=== PATIENT | male | born 1935 | race Native Hawaiian/Other Pacific Islander ===

== ENCOUNTER 2016-09-23 12:00 | Outpatient (CLI) | payer OTHER, MEDICARE | END 2016-09-23 19:25 | disposition home or self-care (01) | LOC: LAB 12:00 | DX: I25.110 Atherosclerotic heart disease of native coronary artery with unstable angina pectoris (principal); J44.9 Chronic obstructive pulmonary disease, unspecified; R26.81 Unsteadiness on feet; Z79.01 Long term (current) use of anticoagulants; Z51.81 Encounter for therapeutic drug level monitoring | CPT/HCPCS: 85610 ==

== ENCOUNTER 2017-01-10 11:41 | Outpatient (CLI) | payer OTHER, MEDICARE | END 2017-01-10 12:45 | disposition home or self-care (01) | LOC: LABW 11:41 | DX: I25.10 Atherosclerotic heart disease of native coronary artery without angina pectoris (principal); Z79.01 Long term (current) use of anticoagulants; Z51.81 Encounter for therapeutic drug level monitoring | CPT/HCPCS: 36415; 85610 ==

== ENCOUNTER 2017-01-23 13:00 | Outpatient (CLI) | payer OTHER, MEDICARE | END 2017-01-23 19:33 | disposition home or self-care (01) | LOC: LABW 13:00 | DX: I25.10 Atherosclerotic heart disease of native coronary artery without angina pectoris (principal); Z79.01 Long term (current) use of anticoagulants; Z51.81 Encounter for therapeutic drug level monitoring | CPT/HCPCS: 36415; 85610 ==

== ENCOUNTER 2017-02-06 09:53 | Outpatient (CLI) | payer OTHER, MEDICARE | END 2017-02-06 19:00 | disposition home or self-care (01) | LOC: LABW 09:53 | DX: I25.10 Atherosclerotic heart disease of native coronary artery without angina pectoris (principal); Z79.01 Long term (current) use of anticoagulants; Z51.81 Encounter for therapeutic drug level monitoring | CPT/HCPCS: 36415; 85610 ==

== ENCOUNTER 2017-02-13 10:31 | Outpatient (CLI) | payer OTHER, MEDICARE | END 2017-02-13 11:35 | disposition home or self-care (01) | LOC: LABW 10:31 | DX: I25.10 Atherosclerotic heart disease of native coronary artery without angina pectoris (principal); Z79.01 Long term (current) use of anticoagulants; Z51.81 Encounter for therapeutic drug level monitoring | CPT/HCPCS: 36415; 85610 ==

== ENCOUNTER 2017-02-28 10:58 | Outpatient (CLI) | payer OTHER, MEDICARE | END 2017-02-28 19:15 | disposition home or self-care (01) | LOC: LABW 10:58 | DX: I25.10 Atherosclerotic heart disease of native coronary artery without angina pectoris (principal); Z79.01 Long term (current) use of anticoagulants; Z51.81 Encounter for therapeutic drug level monitoring | CPT/HCPCS: 36415; 85610 ==

== ENCOUNTER 2017-03-14 10:33 | Outpatient (CLI) | payer OTHER, MEDICARE | END 2017-03-14 19:09 | disposition home or self-care (01) | LOC: LABW 10:33 | DX: I25.10 Atherosclerotic heart disease of native coronary artery without angina pectoris (principal); Z79.01 Long term (current) use of anticoagulants; Z51.81 Encounter for therapeutic drug level monitoring | CPT/HCPCS: 36415; 85610 ==

== ENCOUNTER 2017-04-21 13:18 | Outpatient (CLI) | payer OTHER, MEDICARE | END 2017-04-21 14:20 | disposition home or self-care (01) | LOC: RAD 13:18 | DX: M17.11 Unilateral primary osteoarthritis, right knee (principal) ==

== ENCOUNTER 2017-05-16 09:24 | Outpatient (CLI) | payer OTHER, MEDICARE | END 2017-05-16 19:18 | disposition home or self-care (01) | LOC: LABW 09:24 | DX: I25.10 Atherosclerotic heart disease of native coronary artery without angina pectoris (principal); Z79.01 Long term (current) use of anticoagulants; Z51.81 Encounter for therapeutic drug level monitoring | CPT/HCPCS: 36415; 85610 ==

== ENCOUNTER 2017-05-23 08:49 | Outpatient (CLI) | payer OTHER, MEDICARE | END 2017-05-23 09:50 | disposition home or self-care (01) | LOC: LABW 08:49 | DX: I25.10 Atherosclerotic heart disease of native coronary artery without angina pectoris (principal); Z79.01 Long term (current) use of anticoagulants; Z51.81 Encounter for therapeutic drug level monitoring | CPT/HCPCS: 36415; 85610 ==

== ENCOUNTER 2017-06-16 10:50 | Outpatient (CLI) | payer OTHER, MEDICARE | END 2017-06-16 20:28 | disposition home or self-care (01) | LOC: LABW 10:50 | DX: I25.10 Atherosclerotic heart disease of native coronary artery without angina pectoris (principal); Z79.01 Long term (current) use of anticoagulants; Z51.81 Encounter for therapeutic drug level monitoring | CPT/HCPCS: 36415; 85610 ==

== ENCOUNTER 2017-06-30 10:31 | Outpatient (CLI) | payer OTHER, MEDICARE | END 2017-06-30 19:41 | disposition home or self-care (01) | LOC: LABW 10:31 | DX: I25.10 Atherosclerotic heart disease of native coronary artery without angina pectoris (principal); Z79.01 Long term (current) use of anticoagulants; Z51.81 Encounter for therapeutic drug level monitoring | CPT/HCPCS: 36415; 85610 ==

== ENCOUNTER 2017-07-21 10:07 | Outpatient (CLI) | payer OTHER, MEDICARE | END 2017-07-21 19:19 | disposition home or self-care (01) | LOC: LABW 10:07 | DX: I25.10 Atherosclerotic heart disease of native coronary artery without angina pectoris (principal); Z79.01 Long term (current) use of anticoagulants; Z51.81 Encounter for therapeutic drug level monitoring | CPT/HCPCS: 36415; 85610 ==

== ENCOUNTER 2017-08-05 10:51 | Outpatient (CLI) | payer OTHER, MEDICARE | END 2017-08-05 19:55 | disposition home or self-care (01) | LOC: LABW 10:51 | DX: I25.10 Atherosclerotic heart disease of native coronary artery without angina pectoris (principal); Z79.01 Long term (current) use of anticoagulants; Z51.81 Encounter for therapeutic drug level monitoring | CPT/HCPCS: 36415; 85610 ==

== ENCOUNTER 2017-08-26 10:05 | Outpatient (CLI) | payer OTHER, MEDICARE | END 2017-08-26 18:00 | disposition home or self-care (01) | LOC: LABW 10:05 | DX: I25.10 Atherosclerotic heart disease of native coronary artery without angina pectoris (principal); Z79.01 Long term (current) use of anticoagulants; Z51.81 Encounter for therapeutic drug level monitoring | CPT/HCPCS: 36415; 85610 ==

== ENCOUNTER 2017-09-08 10:42 | Outpatient (CLI) | payer OTHER, MEDICARE | END 2017-09-08 23:35 | disposition home or self-care (01) | LOC: LABW 10:42 | DX: I25.10 Atherosclerotic heart disease of native coronary artery without angina pectoris (principal); Z79.01 Long term (current) use of anticoagulants; Z51.81 Encounter for therapeutic drug level monitoring | CPT/HCPCS: 36415; 85610 ==

== ENCOUNTER 2017-09-24 13:36 | Outpatient (CLI) | payer OTHER, MEDICARE | END 2017-09-24 20:57 | disposition home or self-care (01) | LOC: LABW 13:36 | DX: I25.10 Atherosclerotic heart disease of native coronary artery without angina pectoris (principal); Z79.01 Long term (current) use of anticoagulants; Z51.81 Encounter for therapeutic drug level monitoring | CPT/HCPCS: 36415; 85610 ==

== ENCOUNTER 2017-10-09 09:57 | Outpatient (CLI) | payer OTHER, MEDICARE | END 2017-10-09 22:28 | disposition home or self-care (01) | LOC: LABW 09:57 | DX: I25.10 Atherosclerotic heart disease of native coronary artery without angina pectoris (principal); Z79.01 Long term (current) use of anticoagulants; Z51.81 Encounter for therapeutic drug level monitoring | CPT/HCPCS: 36415; 85610 ==

== ENCOUNTER 2017-10-10 09:51 | Outpatient (CLI) | payer OTHER, MEDICARE | END 2017-10-10 22:14 | disposition home or self-care (01) | LOC: LABW 09:51 | DX: I25.10 Atherosclerotic heart disease of native coronary artery without angina pectoris (principal); Z79.01 Long term (current) use of anticoagulants; Z51.81 Encounter for therapeutic drug level monitoring | CPT/HCPCS: 36415; 85610 ==

== ENCOUNTER 2017-10-13 12:04 | Outpatient (CLI) | payer OTHER, MEDICARE | END 2017-10-13 22:28 | disposition home or self-care (01) | LOC: LABW 12:04 | DX: I25.10 Atherosclerotic heart disease of native coronary artery without angina pectoris (principal); Z79.01 Long term (current) use of anticoagulants; Z51.81 Encounter for therapeutic drug level monitoring | CPT/HCPCS: 36415; 85610 ==

== ENCOUNTER 2017-10-17 11:07 | Outpatient (CLI) | payer OTHER, MEDICARE | END 2017-10-17 22:45 | disposition home or self-care (01) | LOC: LABW 11:07 | DX: I25.10 Atherosclerotic heart disease of native coronary artery without angina pectoris (principal); Z79.01 Long term (current) use of anticoagulants; Z51.81 Encounter for therapeutic drug level monitoring | CPT/HCPCS: 36415; 85610 ==

== ENCOUNTER 2017-10-31 11:39 | Outpatient (CLI) | payer OTHER, MEDICARE | END 2017-10-31 19:24 | disposition home or self-care (01) | LOC: LABW 11:39 | DX: I25.10 Atherosclerotic heart disease of native coronary artery without angina pectoris (principal); Z79.01 Long term (current) use of anticoagulants; Z51.81 Encounter for therapeutic drug level monitoring | CPT/HCPCS: 36415; 85610 ==

== ENCOUNTER 2017-11-14 11:01 | Outpatient (CLI) | payer OTHER, MEDICARE | END 2017-11-14 19:46 | disposition home or self-care (01) | LOC: LABW 11:01 | DX: I25.10 Atherosclerotic heart disease of native coronary artery without angina pectoris (principal); Z79.01 Long term (current) use of anticoagulants; Z51.81 Encounter for therapeutic drug level monitoring | CPT/HCPCS: 36415; 85610 ==

== ENCOUNTER 2017-12-01 09:29 | Outpatient (CLI) | payer OTHER, MEDICARE | END 2017-12-01 22:10 | disposition home or self-care (01) | LOC: LABW 09:29 | DX: I25.10 Atherosclerotic heart disease of native coronary artery without angina pectoris (principal); Z79.01 Long term (current) use of anticoagulants; Z51.81 Encounter for therapeutic drug level monitoring | CPT/HCPCS: 36415; 85610 ==

== ENCOUNTER 2017-12-12 14:37 | Outpatient (CLI) | payer OTHER, MEDICARE | END 2017-12-12 19:18 | disposition home or self-care (01) | LOC: LABW 14:37 | DX: I25.10 Atherosclerotic heart disease of native coronary artery without angina pectoris (principal); Z79.01 Long term (current) use of anticoagulants; Z51.81 Encounter for therapeutic drug level monitoring | CPT/HCPCS: 36415; 85610 ==

== ENCOUNTER 2017-12-29 12:05 | Outpatient (CLI) | payer OTHER, MEDICARE | END 2017-12-29 20:33 | disposition home or self-care (01) | LOC: LABW 12:05 | DX: I25.10 Atherosclerotic heart disease of native coronary artery without angina pectoris (principal); Z79.01 Long term (current) use of anticoagulants; Z51.81 Encounter for therapeutic drug level monitoring | CPT/HCPCS: 36415; 85610 ==

== ENCOUNTER 2018-01-12 10:16 | Outpatient (CLI) | payer OTHER, MEDICARE | END 2018-01-12 19:37 | disposition home or self-care (01) | LOC: LABW 10:16 | DX: I25.10 Atherosclerotic heart disease of native coronary artery without angina pectoris (principal); Z79.01 Long term (current) use of anticoagulants; Z51.81 Encounter for therapeutic drug level monitoring | CPT/HCPCS: 36415; 85610 ==

== ENCOUNTER 2018-01-26 10:51 | Outpatient (CLI) | payer OTHER, MEDICARE | END 2018-01-26 21:40 | disposition home or self-care (01) | LOC: LABW 10:51 | DX: I25.10 Atherosclerotic heart disease of native coronary artery without angina pectoris (principal); Z51.81 Encounter for therapeutic drug level monitoring; Z79.01 Long term (current) use of anticoagulants | CPT/HCPCS: 36415; 85610 ==

== ENCOUNTER 2018-02-12 10:05 | Outpatient (CLI) | payer OTHER, MEDICARE | END 2018-02-12 23:20 | disposition home or self-care (01) | LOC: LABW 10:05 | DX: I25.10 Atherosclerotic heart disease of native coronary artery without angina pectoris (principal); Z79.01 Long term (current) use of anticoagulants; Z51.81 Encounter for therapeutic drug level monitoring | CPT/HCPCS: 36415; 85610 ==

== ENCOUNTER 2018-03-06 08:49 | Outpatient (CLI) | payer OTHER, MEDICARE | END 2018-03-06 19:04 | disposition home or self-care (01) | LOC: LABW 08:49 | DX: I25.10 Atherosclerotic heart disease of native coronary artery without angina pectoris (principal); Z79.01 Long term (current) use of anticoagulants; Z51.81 Encounter for therapeutic drug level monitoring | CPT/HCPCS: 36415; 85610 ==

== ENCOUNTER 2018-03-24 12:01 | Outpatient (CLI) | payer OTHER, MEDICARE | END 2018-03-24 22:44 | disposition home or self-care (01) | LOC: LABW 12:01 | DX: I25.10 Atherosclerotic heart disease of native coronary artery without angina pectoris (principal); Z79.01 Long term (current) use of anticoagulants; Z51.81 Encounter for therapeutic drug level monitoring | CPT/HCPCS: 36415; 85610 ==

== ENCOUNTER 2018-04-21 10:44 | Outpatient (CLI) | payer OTHER, MEDICARE | END 2018-04-21 22:07 | disposition home or self-care (01) | LOC: LABW 10:44 | DX: I25.10 Atherosclerotic heart disease of native coronary artery without angina pectoris (principal); Z79.01 Long term (current) use of anticoagulants; Z51.81 Encounter for therapeutic drug level monitoring | CPT/HCPCS: 36415; 85610 ==

== ENCOUNTER 2018-05-11 11:06 | Outpatient (CLI) | payer OTHER, MEDICARE | END 2018-05-11 20:34 | disposition home or self-care (01) | LOC: LABW 11:06 | DX: I25.10 Atherosclerotic heart disease of native coronary artery without angina pectoris (principal); Z79.01 Long term (current) use of anticoagulants; Z51.81 Encounter for therapeutic drug level monitoring | CPT/HCPCS: 36415; 85610 ==

== ENCOUNTER 2018-05-29 09:24 | Outpatient (CLI) | payer OTHER, MEDICARE | END 2018-05-29 21:26 | disposition home or self-care (01) | LOC: LABW 09:24 | DX: I25.10 Atherosclerotic heart disease of native coronary artery without angina pectoris (principal); Z79.01 Long term (current) use of anticoagulants; Z51.81 Encounter for therapeutic drug level monitoring | CPT/HCPCS: 36415; 85610 ==

== ENCOUNTER 2018-06-12 11:15 | Outpatient (CLI) | payer OTHER, MEDICARE | END 2018-06-12 23:23 | disposition home or self-care (01) | LOC: LABW 11:15 | DX: I25.10 Atherosclerotic heart disease of native coronary artery without angina pectoris (principal); Z79.01 Long term (current) use of anticoagulants; Z51.81 Encounter for therapeutic drug level monitoring | CPT/HCPCS: 36415; 85610 ==

== ENCOUNTER 2018-07-01 10:31 | Outpatient (CLI) | payer OTHER, MEDICARE | END 2018-07-01 22:06 | disposition home or self-care (01) | LOC: LABW 10:31 | DX: I25.110 Atherosclerotic heart disease of native coronary artery with unstable angina pectoris (principal); I10 Essential (primary) hypertension; Z95.2 Presence of prosthetic heart valve | CPT/HCPCS: 36415; 85610 ==

== ENCOUNTER 2018-07-22 10:42 | Outpatient (CLI) | payer OTHER, MEDICARE | END 2018-07-22 23:59 | disposition home or self-care (01) | LOC: LABW 10:42 | DX: I25.10 Atherosclerotic heart disease of native coronary artery without angina pectoris (principal); I10 Essential (primary) hypertension; Z95.2 Presence of prosthetic heart valve | CPT/HCPCS: 36415; 85610 ==

== ENCOUNTER 2018-08-12 11:43 | Outpatient (CLI) | payer OTHER, MEDICARE | END 2018-08-12 19:31 | disposition home or self-care (01) | LOC: LABW 11:43 | DX: I25.110 Atherosclerotic heart disease of native coronary artery with unstable angina pectoris (principal); I10 Essential (primary) hypertension; Z95.2 Presence of prosthetic heart valve | CPT/HCPCS: 36415; 85610 ==

== ENCOUNTER 2018-09-10 10:43 | Outpatient (CLI) | payer OTHER, MEDICARE | END 2018-09-10 19:20 | disposition home or self-care (01) | LOC: LABW 10:43 | DX: I25.10 Atherosclerotic heart disease of native coronary artery without angina pectoris (principal); I10 Essential (primary) hypertension; Z95.2 Presence of prosthetic heart valve | CPT/HCPCS: 36415; 85610 ==

== ENCOUNTER 2018-09-24 12:58 | Outpatient (CLI) | payer OTHER, MEDICARE | END 2018-09-24 20:33 | disposition home or self-care (01) | LOC: LABW 12:58 | DX: I25.110 Atherosclerotic heart disease of native coronary artery with unstable angina pectoris (principal); I10 Essential (primary) hypertension; Z95.2 Presence of prosthetic heart valve | CPT/HCPCS: 36415; 85610 ==

== ENCOUNTER 2018-10-09 09:36 | Outpatient (CLI) | payer OTHER, MEDICARE | END 2018-10-09 19:58 | disposition home or self-care (01) | LOC: LABW 09:36 | DX: I25.110 Atherosclerotic heart disease of native coronary artery with unstable angina pectoris (principal); I10 Essential (primary) hypertension; Z95.2 Presence of prosthetic heart valve; Z79.01 Long term (current) use of anticoagulants | CPT/HCPCS: 36415; 85610 ==

== ENCOUNTER 2018-10-12 12:56 | Outpatient (CLI) | payer OTHER, MEDICARE | END 2018-10-12 20:25 | disposition home or self-care (01) | LOC: RAD 12:56 | DX: M25.561 Pain in right knee (principal) ==

== ENCOUNTER 2018-10-23 11:00 | Outpatient (CLI) | payer OTHER, MEDICARE | END 2018-10-23 19:39 | disposition home or self-care (01) | LOC: LABW 11:00 | DX: I25.110 Atherosclerotic heart disease of native coronary artery with unstable angina pectoris (principal); I10 Essential (primary) hypertension; Z95.2 Presence of prosthetic heart valve; Z79.01 Long term (current) use of anticoagulants | CPT/HCPCS: 36415; 85610 ==

== ENCOUNTER 2018-11-05 11:57 | Outpatient (CLI) | payer OTHER, MEDICARE | END 2018-11-05 19:19 | disposition home or self-care (01) | LOC: LABW 11:57 | DX: I25.110 Atherosclerotic heart disease of native coronary artery with unstable angina pectoris (principal); I10 Essential (primary) hypertension; Z95.2 Presence of prosthetic heart valve; Z79.02 Long term (current) use of antithrombotics/antiplatelets | CPT/HCPCS: 36415; 85610 ==

== ENCOUNTER 2018-11-19 13:12 | Outpatient (CLI) | payer OTHER, MEDICARE | END 2018-11-19 19:45 | disposition home or self-care (01) | LOC: LABW 13:12 | DX: I25.110 Atherosclerotic heart disease of native coronary artery with unstable angina pectoris (principal); I10 Essential (primary) hypertension; Z95.2 Presence of prosthetic heart valve | CPT/HCPCS: 36415; 85610 ==

== ENCOUNTER 2018-12-07 11:06 | Outpatient (CLI) | payer OTHER, MEDICARE | END 2018-12-07 23:41 | disposition home or self-care (01) | LOC: LABW 11:06 | DX: I25.110 Atherosclerotic heart disease of native coronary artery with unstable angina pectoris (principal); I10 Essential (primary) hypertension; Z95.2 Presence of prosthetic heart valve; Z79.02 Long term (current) use of antithrombotics/antiplatelets | CPT/HCPCS: 36415; 85610 ==

== ENCOUNTER 2018-12-30 11:27 | Outpatient (CLI) | payer OTHER, MEDICARE | END 2018-12-30 23:46 | disposition home or self-care (01) | LOC: LABW 11:27 | DX: I25.10 Atherosclerotic heart disease of native coronary artery without angina pectoris (principal); I10 Essential (primary) hypertension; Z95.2 Presence of prosthetic heart valve; Z79.01 Long term (current) use of anticoagulants | CPT/HCPCS: 36415; 85610 ==

== ENCOUNTER 2019-01-20 10:26 | Outpatient (CLI) | payer OTHER, MEDICARE | END 2019-01-20 19:31 | disposition home or self-care (01) | LOC: LABW 10:26 | DX: I25.110 Atherosclerotic heart disease of native coronary artery with unstable angina pectoris (principal); I10 Essential (primary) hypertension; Z95.2 Presence of prosthetic heart valve; Z79.01 Long term (current) use of anticoagulants | CPT/HCPCS: 36415; 85610 ==

== ENCOUNTER 2019-02-10 11:19 | Outpatient (CLI) | payer OTHER, MEDICARE | END 2019-02-10 21:36 | disposition home or self-care (01) | LOC: LABW 11:19 | DX: I25.110 Atherosclerotic heart disease of native coronary artery with unstable angina pectoris (principal); I10 Essential (primary) hypertension; Z95.2 Presence of prosthetic heart valve | CPT/HCPCS: 36415; 85610 ==

== ENCOUNTER 2019-03-10 11:42 | Outpatient (CLI) | payer OTHER, MEDICARE | END 2019-03-10 23:44 | disposition home or self-care (01) | LOC: LABW 11:42 | DX: I25.110 Atherosclerotic heart disease of native coronary artery with unstable angina pectoris (principal); I10 Essential (primary) hypertension; Z95.2 Presence of prosthetic heart valve; Z51.81 Encounter for therapeutic drug level monitoring | CPT/HCPCS: 36415; 85610 ==

== ENCOUNTER 2019-03-15 09:38 | Outpatient (CLI) | payer OTHER, MEDICARE | END 2019-03-15 22:09 | disposition home or self-care (01) | LOC: CT 09:38 | DX: R10.84 Generalized abdominal pain (principal) | CPT/HCPCS: 36415; 82565; 84520; Q9963 ==

== ENCOUNTER 2019-04-12 10:44 | Outpatient (CLI) | payer OTHER, MEDICARE | END 2019-04-12 19:18 | disposition home or self-care (01) | LOC: LABW 10:44 | DX: I25.110 Atherosclerotic heart disease of native coronary artery with unstable angina pectoris (principal); I10 Essential (primary) hypertension; Z95.2 Presence of prosthetic heart valve; Z79.01 Long term (current) use of anticoagulants | CPT/HCPCS: 36415; 85610 ==

== ENCOUNTER 2019-05-10 10:48 | Outpatient (CLI) | payer OTHER, MEDICARE | END 2019-05-10 20:52 | disposition home or self-care (01) | LOC: LABW 10:48 | DX: I25.110 Atherosclerotic heart disease of native coronary artery with unstable angina pectoris (principal); I10 Essential (primary) hypertension; Z95.2 Presence of prosthetic heart valve; Z79.01 Long term (current) use of anticoagulants | CPT/HCPCS: 36415; 85610 ==

== ENCOUNTER 2019-05-18 09:15 | Outpatient (CLI) | payer OTHER, MEDICARE | END 2019-05-18 20:53 | disposition home or self-care (01) | LOC: LABW 09:15 | DX: I25.110 Atherosclerotic heart disease of native coronary artery with unstable angina pectoris (principal); I10 Essential (primary) hypertension; Z95.2 Presence of prosthetic heart valve; Z79.01 Long term (current) use of anticoagulants | CPT/HCPCS: 36415; 85610 ==

== ENCOUNTER 2019-06-08 10:05 | Outpatient (CLI) | payer OTHER, MEDICARE | END 2019-06-08 20:09 | disposition home or self-care (01) | LOC: LABW 10:05 | DX: I25.110 Atherosclerotic heart disease of native coronary artery with unstable angina pectoris (principal); I10 Essential (primary) hypertension; Z95.2 Presence of prosthetic heart valve; Z79.01 Long term (current) use of anticoagulants | CPT/HCPCS: 36415; 85610 ==

== ENCOUNTER 2019-07-19 10:43 | Outpatient (CLI) | payer OTHER, MEDICARE | END 2019-07-19 19:07 | disposition home or self-care (01) | LOC: RAD 10:43 | DX: J44.1 Chronic obstructive pulmonary disease with (acute) exacerbation (principal) ==

== ENCOUNTER 2019-07-30 10:06 | Outpatient (CLI) | payer OTHER, MEDICARE | END 2019-07-30 19:41 | disposition home or self-care (01) | LOC: LABW 10:06 | DX: I25.110 Atherosclerotic heart disease of native coronary artery with unstable angina pectoris (principal); I10 Essential (primary) hypertension; Z95.2 Presence of prosthetic heart valve; Z79.01 Long term (current) use of anticoagulants | CPT/HCPCS: 36415; 85610 ==

== ENCOUNTER 2019-08-26 12:56 | Outpatient (CLI) | payer OTHER, MEDICARE | END 2019-08-26 19:02 | disposition home or self-care (01) | LOC: LABW 12:56 | DX: I25.110 Atherosclerotic heart disease of native coronary artery with unstable angina pectoris (principal); I10 Essential (primary) hypertension; Z95.2 Presence of prosthetic heart valve; Z79.01 Long term (current) use of anticoagulants | CPT/HCPCS: 36415; 85610 ==

== ENCOUNTER 2019-09-20 11:39 | Outpatient (CLI) | payer OTHER, MEDICARE | END 2019-09-20 22:57 | disposition home or self-care (01) | LOC: LABW 11:39 | DX: I25.110 Atherosclerotic heart disease of native coronary artery with unstable angina pectoris (principal); I10 Essential (primary) hypertension; Z95.2 Presence of prosthetic heart valve; Z79.01 Long term (current) use of anticoagulants | CPT/HCPCS: 36415; 85610 ==

== ENCOUNTER 2019-10-18 09:47 | Outpatient (CLI) | payer OTHER, MEDICARE | END 2019-10-18 22:20 | disposition home or self-care (01) | LOC: LABW 09:47 | DX: I25.110 Atherosclerotic heart disease of native coronary artery with unstable angina pectoris (principal); I10 Essential (primary) hypertension; Z95.2 Presence of prosthetic heart valve; Z79.01 Long term (current) use of anticoagulants | CPT/HCPCS: 36415; 85610 ==

== ENCOUNTER 2019-11-15 09:58 | Outpatient (CLI) | payer OTHER, MEDICARE | END 2019-11-15 23:08 | disposition home or self-care (01) | LOC: LABW 09:58 | DX: I25.110 Atherosclerotic heart disease of native coronary artery with unstable angina pectoris (principal); I10 Essential (primary) hypertension; Z95.2 Presence of prosthetic heart valve; Z79.01 Long term (current) use of anticoagulants | CPT/HCPCS: 36415; 85610 ==

== ENCOUNTER 2019-12-13 14:01 | Outpatient (CLI) | payer OTHER, MEDICARE | END 2019-12-13 21:51 | disposition home or self-care (01) | LOC: LABW 14:01 | DX: I25.110 Atherosclerotic heart disease of native coronary artery with unstable angina pectoris (principal); I10 Essential (primary) hypertension; Z95.2 Presence of prosthetic heart valve; Z79.01 Long term (current) use of anticoagulants | CPT/HCPCS: 36415; 85610 ==

== ENCOUNTER 2020-01-11 10:30 | Outpatient (CLI) | payer OTHER, MEDICARE | END 2020-01-11 23:22 | disposition home or self-care (01) | LOC: LABW 10:30 | DX: I25.110 Atherosclerotic heart disease of native coronary artery with unstable angina pectoris (principal); I10 Essential (primary) hypertension; Z95.2 Presence of prosthetic heart valve; Z79.01 Long term (current) use of anticoagulants | CPT/HCPCS: 36415; 85610 ==

== ENCOUNTER 2020-02-02 13:58 | Emergency (ER) | payer OTHER, MEDICARE ==
[~2020-02-02] VITALS: Ht 177.8 cm; Wt 81.6 kg
[2020-02-02 14:07] VITALS: TEMP 99.6
[2020-02-02 15:00] LABS: PLATELET COUNT 168 K/uL (142-355)
[2020-02-02 15:16] LABS: POTASSIUM 4.5 mmol/L (3.6-5.2); SODIUM 143 mmol/L (136-145)
[2020-02-02 15:48] VITALS: BP 136/72
== END 2020-02-02 15:48 | disposition home or self-care (01) ==
LOC: ED 13:58
PROVIDERS: Emergency Medicine
DX: J44.9 Chronic obstructive pulmonary disease, unspecified (principal)
CPT/HCPCS: 80053; 82550; 82553; 84484; 85027; 93005; 99283